=== PATIENT | female | born 1940 | race Caucasian/White ===

== ENCOUNTER → 2016-06-28 | Outpatient (CLI) | payer MEDICARE, OTHER ==
--- NOTE | 2016-06-28 15:55 | RADRPT ---
PROCEDURE: XR left knee. CLINICAL INDICATION: Knee pain TECHNIQUE: AP weightbearing, PA weightbearing, lateral weightbearing and sunrise views are availab le for review. COMPARISON: None available FINDINGS: There is a small suprapatellar joint effusion The osseous structures are normal in mineralization, architecture and alignment. No fractures are i dentified. No osseous lesions are identified. The joints are unremarkable. The soft tissues are u nremarkable. IMPRESSION: Small suprapatellar joint effusion Otherwise unremarkable examination RPTAT: [facility] .Toño Conde MD, MD Date Time Electronically viewed and signed by .Toño Conde MD, on 06/28/2016 15:55 .B/
== END | disposition home or self-care (01) ==
LOC: HKI 14:11
PROVIDERS: ATTEND Orthopaedic Surgery
DX: M25.562 Pain in left knee (principal); S80.02XA Contusion of left knee, initial encounter; M25.642 Stiffness of left hand, not elsewhere classified
CPT/HCPCS: 20610; 73564; G0463; J1030

== ENCOUNTER → 2017-09-23 | Outpatient (CLI) | END | disposition home or self-care (01) ==